=== PATIENT | male | born 1960 | race Caucasian/White ===

== ENCOUNTER → 2024-01-04 19:52 | Outpatient (REF) | payer OTHER, SELFPAY | LOC: MRI 19:52 | PROVIDERS: ATTENDING PHYSICIAN Physician Assistant; FAMILY PHYSICIAN Family Medicine | DX: R29.898 Other symptoms and signs involving the musculoskeletal system (principal) | CPT/HCPCS: 72148 ==

== ENCOUNTER → 2024-06-25 13:11 | Outpatient (REF) | payer OTHER, SELFPAY | LOC: HWRAD 13:11 | PROVIDERS: FAMILY PHYSICIAN Family Medicine; OTHER PHYSICIAN Surgery | DX: R10.32 Left lower quadrant pain (principal) | CPT/HCPCS: 74177; Q9967 ==

== ENCOUNTER 2024-07-06 21:17 | Emergency (ER) | payer OTHER, SELFPAY ==
[2024-07-06 21:27] VITALS: BP 178/80
[2024-07-06 21:43] LABS: % Basophils 0.9 % (0-2); % Eosinophils 4.9 % (0-6); % Immature Granulocytes 0.4 % (0-0.5); % Lymphocytes 27.8 % (20.5-51.1); % Monocytes 10.5 % (1.7-9.3); % Neutrophils 55.5 % (42.2-75.2); Absolute Basophils 0.1 10^3/uL (0-0.2); Absolute Eosinophils 0.4 10^3/uL (0-0.7); Absolute Lymphocytes 2.2 10^3/uL (1.2-3.4); Absolute Monocytes 0.8 10^3/uL (0.1-0.6); Absolute Neutrophils 4.4 10^3/uL (1.4-6.5); Hematocrit 44.7 % (39.0-52.0); Hemoglobin 15.7 g/dL (13.0-18.0); Mean Corp Hgb Conc. 35.1 g/dL (33.0-37.0); Mean Corpuscular Hgb 31.3 pg (27.0-31.0); Nucleated Red Blood Cells % 0 % (-); Platelet Count 250 10^3/uL (130-400); Red Blood Cell Count 5.02 10^6/uL (4.70-6.10); Red Cell Dist. Width 12.7 % (11.5-14.5); Urine Albumin Negative (Neg - Trace); Urine Bilirubin Negative (Negative); Urine Character Clear (Clear); Urine Color Yellow; Urine Glucose Negative (Negative); Urine Ketone Negative (Negative); Urine Leukocyte Negative (Negative); Urine Nitrite Negative (Negative); Urine Occult Blood Negative (Negative); Urine Specific Gravity 1.005 (<1.030); Urine Urobilinogen Negative (Neg - 1+); White Blood Cell Count 7.9 10^3/uL (4.8-10.8)
[2024-07-06 21:53] VITALS: BMI 36.7
[2024-07-06 21:57] VITALS: BP 145/68
[2024-07-06 22:01] LABS: ALT (SGPT) 42 U/L (0-50); AST (SGOT) 43 U/L (17-59); Albumin 4.4 g/dl (3.5-5.0); Alkaline Phosphatase 63 U/L (38-126); Blood Urea Nitrogen 17 mg/dl (9-20); Calcium 9.5 mg/dl (8.4-10.2); Carbon Dioxide 32 mmol/L (22-30); Chloride 101 mmol/L (98-107); Estimated Creatinine Clearance 114 ml/min; Glucose 98 mg/dl (70-99); Potassium 4.9 mmol/L (3.5-5.1); Sodium 141 mmol/L (135-145); Total Bilirubin 0.7 mg/dl (0.2-1.3); eGFR > 60.00
--- NOTE | 2024-07-06 22:07 | ED.GENMED ---
History of Present Illness
General
Chief Complaint: Male Genito-Urinary Symptoms
Source: patient, records and spouse
Exam Limitations: none
Time Seen by Provider: 07/06/24 21:53
Nursing documentation reviewed up to this point in time: agreed with
History of Present Illness
History of Present Illness:
Patient is a 64-year-old male who presents to the emergency department complaining that his urine had a green tinge to it tonight. Patient did have a CAT scan couple weeks ago with oral and IV contrast which did not show any hernias. Patient has
been history of chronic prostatitis and approximately a month ago started having symptoms of prostatitis. Patient was placed on amoxicillin and then Augmentin. Patient states his left testicular discomfort radiating into the left groin. Patient
has a appointment with urology in 5 days. Patient denies fever or chills. Patient denies any dysuria, hematuria, urgency or frequency. Patient denies any flank or back pain. Patient denies any GI symptoms.
Past History
Past History
ED Past Medical History: CAD, Fibromyalgia, GERD, HTN, Hypercholesterolemia, GA, Psychiatric (Anxiety, claustrophobia), Other (Gastritis) and Other (Chronic abdominal pain)
ED Past Surgical History: Cardiac (Stent)
Social History
Tobacco: Non-smoker
Alcohol: None
Personal:
Living: with family
Employment: Employed
Family History
Family History: Other (Noncontributory)
Review of Systems
Review of Systems
All Other Systems: ROS reviewed and negative except as documented in HPI and ROS
Constitutional: Reports no symptoms
EENT: Reports no symptoms
Respiratory: Reports no symptoms
Cardiac: Reports no symptoms
ABD/GI: Reports no symptoms
: Reports other (Green urine and left testicle discomfort); Denies dysuria, frequency, flank pain, urgency or bleeding
Musculoskeletal: Reports no symptoms
Skin: Reports no symptoms
Neurological: Reports no symptoms
Hematologic/Lymphatic: Reports no symptoms
Phy Exam
Physical Exam
Physical Exam:
Physical Exam
General: No apparent distress, alert and appropriate, well nourished, well hydrated
HENT: Normocephalic, supple with no lymphadenopathy, no thyromegaly
Eyes: Clear sclera, conjuctiva without injection
Heart: Regular rhythm and rate. No S3, S4. No murmur.
Lungs: No respiratory distress, no stridor, lung sounds clear and equal bilaterally
Abdomen: Soft, nontender, no organomegaly, no CVA tenderness, BS good. Inspection of the patient's genitalia and palpation does not reveal any mass or significant tenderness of the testicles. No inguinal hernias. No lesions
to the penis.
Neuro: Alert and oriented x 3, CN II - XII intact, no motor focality, no cerebellar dysfunction
Skin: no rash
Psychiatric: well kept. interactive and cooperative
Extremities: No edema, cyanosis, tenderness
Course
Orders/Labs/Results
Orders:
Orders
07/06/24 21:35
CBC/With Diff [Complete Blood Count/With Diff] Urgent
CMP [Comprehensive Metabolic Panel] Urgent
Urinalysis Reflex To Culture Urgent
Date Specimen was Collected: 07/06/24
Time Specimen was Collected: 21:30
07/06/24 22:07
US Scrotum Urgent
Comment:
Reason For Exam: left testicle pain
Abnormal Lab Results
07/06/24
21:35
MCH 31.3 H pg
(27.0-31.0)
Absolute Monos (auto) 0.8 H 10^3/uL
(0.1-0.6)
Monocytes % 10.5 H %
(1.7-9.3)
Carbon Dioxide 32 H mmol/L
(22-30)
07/06/24 21:35
07/06/24 21:35
Vital Signs
Initial and Last Documented VS:
Initial Vital Signs
Temp Pulse Resp BP Pulse Ox
98.1 F 59 18 178/80 97
07/06/24 21:27 07/06/24 21:27 07/06/24 21:27 07/06/24 21:27 07/06/24 21:27
Last Documented Vital Signs
Temp Pulse Resp BP Pulse Ox
98.1 F 59 18 145/68 97
07/06/24 22:00 07/06/24 21:27 07/06/24 21:27 07/06/24 21:57 07/06/24 21:27
*Radiology
Radiology exam reviewed: radiology read reviewed (No testicular pathology)
*Pulse Oximetry
Patient hypoxic: no
*EKG
Interpreted by ED Provider?: NA
*Solar Designer Interpretation
Rate: Solar Designer- N/A
*Critical Care Note
Total Time (30-74mins, 75-104mins- exclusive of procedures): Not Applicable
Update Note
Update Note:
Patient has an appointment with urology in a few days. At this point would just treat with nonsteroidals as well as an athletic supporter
ED Attending Note
-
Portions of this chart may have been created with voice recognition software.� Occasional wrong word or��sound alike� substitutions may have occurred due to the inherent limitations of voice recognition software.
Discharge Plan
Departure
Patient Disposition: Home (Routine Discharge)
Date of Disposition: 07/07/24
Time of Disposition: 01:18
Patient with high blood pressure during this ER visit?: Yes
Condition: Good
Covid-19: Not Applicable
Discharge Problem:
Testicular discomfort
Instructions: Epididymitis and orchitis, BLOOD PRESSURE
Prescriptions:
New
celecoxib [Celebrex] 100 mg capsule
100 mg PO BID Qty: 20 0RF
No Action
aspirin 81 MG tablet,chewable
81 mg PO DAILY 0RF
metoprolol succinate 25 MG tablet extended release 24 hr
25 mg PO DAILY Qty: 90 10RF
rosuvastatin 20 MG tablet
20 mg PO QPM Qty: 90 10RF
ticagrelor [Brilinta] 90 MG tablet
90 mg PO BID Qty: 60 12RF
lorazepam 1 MG tablet
1 mg PO Q4HPRN PRN (Reason: anxiety)
Referrals:
Roman Lombardo DO [Family Provider] - Follow up in 5-7 days
Activity Restrictions/Additional Instructions:
Keep urology appointment. Use an athletic supporter to pull your testicles closer to your abdomen.
Interventions
Interventions:
*General Assessment Last Done: 07/06/24 21:58
*Neglect/Abuse Screening Last Done: 07/06/24 22:36
*ED COVID-19 Vaccine History Last Done: 07/06/24 21:59
ED-Male Genitourinary Assessment Last Done: 07/06/24 21:56
Discharge Date and Time
Print Language: VINCENTIAN
== END 2024-07-07 01:52 | disposition home or self-care (01) ==
LOC: EMR 21:17
PROVIDERS: EMERGENCY PHYSICIAN Emergency Medicine; FAMILY PHYSICIAN Family Medicine
DX: N50.812 Left testicular pain (principal); I10 Essential (primary) hypertension
CPT/HCPCS: 99284; 76870; 80053; 81003; 85025; 93976

== ENCOUNTER → 2024-12-24 14:28 | Outpatient (REF) | payer OTHER, SELFPAY | LOC: HWRAD 14:28 | PROVIDERS: ATTENDING PHYSICIAN Family Medicine | DX: R10.84 Generalized abdominal pain (principal) | CPT/HCPCS: 76700 ==

== ENCOUNTER → 2025-05-24 11:06 | Outpatient (REF) | payer OTHER, SELFPAY | LOC: RAD 11:06 | PROVIDERS: ATTENDING PHYSICIAN Internal Medicine Gastroenterology; FAMILY PHYSICIAN Family Medicine | DX: R10.13 Epigastric pain (principal); R12 Heartburn | CPT/HCPCS: 74246 ==